=== PATIENT | male | born 1945 | race Caucasian/White ===

== ENCOUNTER 2019-05-10 12:59 | Inpatient (IN) ==
[2019-05-10] MEDS ORDERED: CeFAZolin Syr 2,000MG/20 ML 2,000 MG/20 ML SYRINGE IVPB ONE (13:35)
[2019-05-10] MEDS: Ringers Solution, Lactated 1,000 ML IVC SCH ×2 (14:17→16:43)
[2019-05-10] MEDS ORDERED: Albuterol 2.5 MG/3 ML NEBULIZER IH ONE (14:27)
[2019-05-10] MEDS ORDERED: *HR* FentaNYL (PF) 100 MCG/2 ML VIAL ONE ×3 (14:32→15:50)
[2019-05-10] MEDS ORDERED: *HR* Succinylcholine 200 MG/10 ML VIAL IVP ONE (14:32)
[2019-05-10] MEDS ORDERED: Ondansetron 4 MG/2 ML VIAL ONE (14:32)
[2019-05-10] MEDS ORDERED: Lidocaine -MPF 2% 2 ML VIAL ONE (14:32)
[2019-05-10] MEDS ORDERED: Lidocaine HCL 4 ML Topical Solution (Laryng-O-Jet Kit Sterile Pak) TP ONE (14:32)
[2019-05-10] MEDS ORDERED: Dexamethasone 4 MG/ML VIAL ONE (14:32)
[2019-05-10] MEDS ORDERED: *HR* Propofol 200 MG/20 ML VIAL IVP ONE (14:33)
[2019-05-10] MEDS ORDERED: *HR* PHENYLEPHRINE 1,000 MCG/10 ML SYRINGE IVP ONE ×3 (14:49→16:17)
[2019-05-10] MEDS ORDERED: *HR* Midazolam HCl 2 MG/2 ML VIAL ONE (15:05)
[2019-05-10] MEDS ORDERED: Ropivacaine/PF 0.5% 30 ML VIAL ONE (15:06)
[2019-05-10] MEDS ORDERED: ROPIVACAINE/PF/NS 0.25% 1 EACH SYRINGE INTRAART ONE (15:06)
[2019-05-10] MEDS ORDERED: Ethanol\\Acetic Acid\\Na Ace\\Ben 1,000 ML IRRIG.SOLN IR ONE (15:19)
[2019-05-10] MEDS ORDERED: EPHEDrine 50 MG/ML VIAL ONE (16:12)
[2019-05-10 17:20] LABS: Hematocrit 41.2 % (37.5-50.1); Hemoglobin 13.8 g/dL (12.9-16.9)
[2019-05-10] MEDS ORDERED: MOM Conc 10 ML UD.LIQ PO PRN (17:22)
[2019-05-10] MEDS ORDERED: Sennosides 8.6 MG TABLET PO PRN (17:22)
[2019-05-10] MEDS ORDERED: Ringers Solution, Lactated 1,000 ML IVC SCH (17:22)
[2019-05-10] MEDS ORDERED: *HR* OxyCODONE Immed Rel 5 MG TABLET PO PRN (17:22)
[2019-05-10] MEDS ORDERED: *HR* OxyCODONE/APAP 5/325 TABLET PO PRN (17:22)
[2019-05-10] MEDS ORDERED: Ondansetron 4 MG/2 ML VIAL IVP PRN (17:22)
[2019-05-10] MEDS ORDERED: CLEAR EYES NATURAL TEARS 15 ML BOTTLE BOTH EYES PRN (17:22)
[2019-05-10] MEDS ORDERED: *HR* Enoxaparin 30 MG/0.3 ML SYRINGE SQ SCH (18:00)
[2019-05-10] MEDS: *HR* Enoxaparin 30 MG/0.3 ML SYRINGE SQ SCH (18:54)
[2019-05-11] MEDS: ceFAZolin 2,000 MG in 0.9 % Sodium Chloride 100 ML IVPB SCH ×2 (00:06→07:45)
[2019-05-11] MEDS: *HR* Enoxaparin 30 MG/0.3 ML SYRINGE SQ SCH (05:34)
[2019-05-11 05:46] LABS: Hematocrit 41.7 % (37.5-50.1); Hemoglobin 13.8 g/dL (12.9-16.9)
[2019-05-11 06:10] LABS: BUN/Creatinine Ratio 15 (6-26); Blood Urea Nitrogen 15 mg/dL (8-23); Calcium 9.5 mg/dL (8.6-10.3); Carbon Dioxide 20 mEq/L (23-29); Chloride 103 mEq/L (98-107); Glucose 172 mg/dL (70-105); Osmolality,Calculated 289 (280-300); Potassium 4.5 mEq/L (3.5-5.1); Sodium 137 mEq/L (136-145); eGFR For African Americans > 60 (> 60); eGFR For Non-African Americans > 60 (> 60)
[2019-05-11 06:40] VITALS: BP 112/68
[2019-05-11] MEDS ORDERED: amLODIPine 5 MG TABLET PO SCH (09:00)
[2019-05-11] MEDS ORDERED: Metoprolol XL (24 HR) Succ 50 MG TAB.ER.24H PO SCH (09:00)
[2019-05-11] MEDS ORDERED: Aspirin Enteric Coated 81 MG Tablet PO SCH (09:00)
[2019-05-11] MEDS ORDERED: Fluticasone Propionate Nasal 50 MCG/SPRAY BOTTLE NS SCH (09:00)
== END 2019-05-11 11:57 | disposition home or self-care (01) | DRG 483 ==
LOC: SAMDAY 12:59 → 3NENU 17:23
PROVIDERS: ADMIT Orthopaedic Surgery; ATTEND Orthopaedic Surgery